=== PATIENT | male | born 1975 | race Caucasian/White ===

== ENCOUNTER 2020-12-11 13:54 | Outpatient (CLI) | payer OTHER ==
[2020-12-11 16:12] LABS: #Basophils 0.1 10x3/uL (0.0-0.2); #Eosinphils 0.2 10x3/uL (0.0-0.5); #Monocytes 0.9 10x3/uL (0.0-1.1); #Neutrophils 5.2 10x3/uL (1.5-8.4); %Basophils 0.6 % (0.0-2.0); %Eosinophils 1.8 % (0.0-6.0); %Lymphocytes 27.4 % (18.0-47.0); %Monocytes 10.2 % (0.0-10.0); %Neutrophils 59.8 % (40.0-75.0); Hemoglobin 17.7 g/dL (13.5-17.5); Mean Corpuscular HGB CONC 31.9 g/dL (32.0-36.0); Mean Corpuscular Hemoglobin 32.4 pg (27.0-33.0); Mean Corpuscular Volume 101.6 fl (81.2-95.1); Mean Platelet Volume 11.2 fl (7.4-10.4); Platelet Count 250 10x3/uL (150-450); RBC Distribution Width 13.7 % (11.5-14.5); Red Blood Cell (RBC) Count 5.46 10x6/uL (4.32-5.72); White Blood Cell (WBC) Count 8.8 10x3/uL (3.5-10.5)
[2020-12-11 16:31] LABS: ALT (SGPT) 37 U/L (8-55); AST (SGOT) 23 U/L (5-34); Albumin 4.1 g/dL (3.5-5.0); Alkaline Phosphatase 95 U/L (40-110); Anion Gap 15 mmol/L (10-20); BUN (Urea Nitrogen) 19 mg/dL (8.9-20.6); Bilirubin, Total 0.5 mg/dL (0.2-1.2); Calc. Creatinine Clearance 0 mL/min (70-130); Calcium 10.4 mg/dL (7.8-10.44); Carbon Dioxide 31 mmol/L (22-29); Chloride 99 mmol/L (98-107); Globulin 3.1 g/dL (2.4-3.5); Glucose 197 mg/dL (70-105); Potassium 4.3 mmol/L (3.5-5.1); Protein, Total 7.2 g/dL (6.0-8.3); Sodium 141 mmol/L (136-145)
[2020-12-12 08:52] LABS: SARS-CoV-2 PCR by NAA Not Detected (NotDetected)
== END 2020-12-11 13:55 | disposition home or self-care (01) ==
LOC: LABBT 13:54
PROVIDERS: ATTEND Internal Medicine Cardiovascular Disease
DX: Z01.812 Encounter for preprocedural laboratory examination (principal); R94.39 Abnormal result of other cardiovascular function study; Z20.822 Contact with and (suspected) exposure to COVID-19
CPT/HCPCS: 80053; 85025; U0003; U0005

== ENCOUNTER 2020-12-16 06:10 | Day surgery (SDC) | payer OTHER ==
[2020-12-15 13:41] VITALS: BMI 45.1
[2020-12-16] MEDS ORDERED: Heparin 10,000 UNITS/ 10 ML VIAL ONE (06:39)
[2020-12-16] MEDS ORDERED: Protamine Sulfate 50 MG/5 ML VIAL ONE (06:39)
[2020-12-16] MEDS ORDERED: Lidocaine 1% (PF) 30 ML VIAL ONE (06:39)
[2020-12-16] MEDS ORDERED: Midazolam HCl 2 mg/2 ml Vial ONE (06:40)
[2020-12-16] MEDS ORDERED: Fentanyl 100 MCG/2 ML VIAL ONE (06:41)
[2020-12-16] MEDS ORDERED: Iopamidol 370 76% 100 ML VIAL ONE (09:35)
== END 2020-12-16 18:45 | disposition home or self-care (01) ==
LOC: CCL 06:10
PROVIDERS: ATTEND Internal Medicine Cardiovascular Disease
PROC: B2111ZZ Fluoroscopy of Multiple Coronary Arteries using Low Osmolar Contrast (ICD-10-PCS; principal; 2020-12-16)
PROC: 4A023N7 Measurement of Cardiac Sampling and Pressure, Left Heart, Percutaneous Approach (ICD-10-PCS; principal; 2020-12-16)
DX: R94.39 Abnormal result of other cardiovascular function study (principal); I11.9 Hypertensive heart disease without heart failure; E11.9 Type 2 diabetes mellitus without complications; E78.5 Hyperlipidemia, unspecified; I42.9 Cardiomyopathy, unspecified; E78.00 Pure hypercholesterolemia, unspecified; G47.33 Obstructive sleep apnea (adult) (pediatric); D75.1 Secondary polycythemia; I83.893 Varicose veins of bilateral lower extremities with other complications; E66.01 Morbid (severe) obesity due to excess calories; Z68.42 Body mass index [BMI] 45.0-49.9, adult; Z82.49 Family history of ischemic heart disease and other diseases of the circulatory system; Z79.4 Long term (current) use of insulin; Z79.82 Long term (current) use of aspirin; Z79.84 Long term (current) use of oral hypoglycemic drugs; Z79.899 Other long term (current) drug therapy
CPT/HCPCS: 36415; 80061; 85347; 93458; 99152; J1644; J2001; J2250; J2720; J3010

== ENCOUNTER 2022-02-17 11:14 | Outpatient (CLI) | payer BC ==
[2022-02-17 12:05] LABS: #Basophils 0.1 10x3/uL (0.0-0.2); #Eosinphils 0.1 10x3/uL (0.0-0.5); #Monocytes 0.7 10x3/uL (0.0-1.1); #Neutrophils 5.1 10x3/uL (1.5-8.4); %Basophils 0.6 % (0.0-2.0); %Eosinophils 1.4 % (0.0-6.0); %Lymphocytes 29.1 % (18.0-47.0); %Monocytes 7.8 % (0.0-10.0); %Neutrophils 60.9 % (40.0-75.0); Hemoglobin 16.8 g/dL (13.5-17.5); Mean Corpuscular HGB CONC 33.3 g/dL (32.0-36.0); Mean Corpuscular Hemoglobin 32.3 pg (27.0-33.0); Mean Corpuscular Volume 97.1 fl (81.2-95.1); Mean Platelet Volume 10.8 fl (7.4-10.4); Platelet Count 245 10x3/uL (150-450); RBC Distribution Width 14.6 % (11.5-14.5); White Blood Cell (WBC) Count 8.3 10x3/uL (3.5-10.5)
== END 2022-02-17 11:15 | disposition home or self-care (01) ==
LOC: LABBT 11:14
PROVIDERS: ATTEND Orthopaedic Surgery Hand Surgery
DX: Z01.812 Encounter for preprocedural laboratory examination (principal); G56.03 Carpal tunnel syndrome, bilateral upper limbs
CPT/HCPCS: 85025

== ENCOUNTER 2022-02-19 06:27 | Day surgery (SDC) | payer BC ==
[2022-02-18 10:04] VITALS: BMI 45.9
[2022-02-19] MEDS ORDERED: Metoprolol Tartrate 5 MG/5 ML VIAL ONE (08:40)
[2022-02-19] MEDS ORDERED: Bacitracin Zinc Ointment 30 gm TUBE ONE (09:29)
[2022-02-19] MEDS ORDERED: Bupivacaine PF 0.5% 30 ML VIAL ONE (09:29)
[2022-02-19] MEDS ORDERED: Neomycin-Polymyxin 1 ML AMP ONE (09:29)
[2022-02-19] MEDS ORDERED: fentaNYL PF 100 MCG/2 ML SYRINGE ONE (10:15)
[2022-02-19] MEDS ORDERED: CEFAZOLIN 2 GM VIAL ONE (10:23)
[2022-02-19] MEDS ORDERED: Sodium Chloride 0.9% 100 ML ONE (10:23)
[2022-02-19] MEDS ORDERED: Phenylephrine 10 MG/ML VIAL ONE (10:36)
[2022-02-19] MEDS ORDERED: ePHEDrine 50 MG/ML VIAL ONE (10:36)
[2022-02-19] MEDS ORDERED: Rocuronium Bromide 10 MG/ML (10ML VIAL) ONE (10:36)
[2022-02-19] MEDS ORDERED: Esmolol 100 MG/10 ML VIAL ONE (10:36)
[2022-02-19] MEDS ORDERED: PROPOFOL 200 MG/20 ML VIAL ONE (10:36)
[2022-02-19] MEDS ORDERED: SUGAMMADEX SODIUM 200 MG/2 ML VIAL ONE (11:54)
[2022-02-19] MEDS ORDERED: Ketorolac Tromethamine 30 MG/ML VIAL ONE (12:21)
== END 2022-02-19 15:13 | disposition home or self-care (01) ==
LOC: SDC 06:27
PROVIDERS: ATTEND Orthopaedic Surgery Hand Surgery
PROC: 01N50ZZ Release Median Nerve, Open Approach (ICD-10-PCS; principal; 2022-02-19)
DX: G56.03 Carpal tunnel syndrome, bilateral upper limbs (principal); G56.23 Lesion of ulnar nerve, bilateral upper limbs; E11.9 Type 2 diabetes mellitus without complications; I10 Essential (primary) hypertension; E78.00 Pure hypercholesterolemia, unspecified; G47.33 Obstructive sleep apnea (adult) (pediatric); Z79.4 Long term (current) use of insulin; Z79.84 Long term (current) use of oral hypoglycemic drugs; Z79.85 Long-term (current) use of injectable non-insulin antidiabetic drugs; Z79.899 Other long term (current) drug therapy
CPT/HCPCS: 36416; J1885; J2370; J2704; J3490; S0020